=== PATIENT | female | born 1970 | race Caucasian/White ===

== ENCOUNTER → 2016-11-16 | Outpatient (CLI) | payer BC ==
--- NOTE | 2016-11-19 10:59 | MM ---
Reason for exam: screening (asymptomatic). Last mammogram was performed 1 year and 1 month ago. History: Patient has history of other cancer at age 7. Family history of breast cancer in maternal grandmother. Benign US breast aspiration single LT of the left breast, September 30, 2014. Benign excisional biopsy of the left breast, 1997. Took hormonal contraceptives for 2 years. Physical Findings: A clinical breast exam by your physician is recommended on an annual basis and results should be correlated with mammographic findings. MG Screening Mammo w CAD Bilateral CC and MLO view(s) were taken. Prior study comparison: October 05, 2015, bilateral MG diagnostic mammo w CAD MARCE. September 30, 2014, left breast MG diagnostic mammo LT wo CAD. September 24, 2014, bilateral MG diagnostic mammo w CAD MARCE. September 04, 2013, bilateral MG screening mammo w CAD. July 18, 2012, bilateral digital screening mammo w/CAD. The breast tissue is heterogeneously dense. This may lower the sensitivity of mammography. Previous mammotome biopsy in the left breast. There is chronic nodularity in the left breast. Nodular asymmetry central right breast on the MLO view appears more defined. ASSESSMENT: Incomplete: need additional imaging evaluation, BI-RAD 0 RECOMMENDATION: Special view mammogram of the right breast. If lesion persists on supplemental views, image directed ultrasound is recommended. [facility] will attempt to contact patient to return for supplemental views and ultrasound if indicated.
== END | disposition home or self-care (01) ==
LOC: RADMAMWWP 15:30
PROVIDERS: ATTEND Obstetrics & Gynecology
DX: Z12.31 Encounter for screening mammogram for malignant neoplasm of breast (principal)

== ENCOUNTER → 2016-11-21 | Outpatient (CLI) | payer BC ==
--- NOTE | 2016-11-22 07:46 | MM ---
Reason for exam: additional evaluation requested from abnormal screening. Last mammogram was performed less than 1 month ago. History: Patient has history of other cancer at age 7. Family history of breast cancer in maternal grandmother. Benign US breast aspiration single LT of the left breast, September 30, 2014. Benign excisional biopsy of the left breast, 1997. Took hormonal contraceptives for 2 years. Physical Findings: Nurse did not find any significant physical abnormalities on exam. MG Work Up Mamm w CAD RT Spot compression MLO and LM view(s) were taken of the right breast. Prior study comparison: November 16, 2016, bilateral MG screening mammo w CAD. October 05, 2015, bilateral MG diagnostic mammo w CAD MARCE. The breast tissue is heterogeneously dense. This may lower the sensitivity of mammography. The central asymmetry on the MLO view becomes less defined on spot MLO and is no longer seen on LM view. Summation shadow is suggested. Precautionary 6 month follow up recommended. These results were verbally communicated with the patient and result sheet given to the patient on 11/21/16. ASSESSMENT: Probably benign, BI-RAD 3 RECOMMENDATION: Follow-up diagnostic mammogram of the right breast in 6 months.
== END | disposition home or self-care (01) ==
LOC: RADMAMWWP 15:22
PROVIDERS: ATTEND Obstetrics & Gynecology
DX: R92.8 Other abnormal and inconclusive findings on diagnostic imaging of breast (principal); Z80.3 Family history of malignant neoplasm of breast

== ENCOUNTER → 2017-11-29 | Outpatient (CLI) | payer BC ==
--- NOTE | 2017-11-29 14:18 | MM ---
Reason for exam: additional evaluation requested from prior study. Last mammogram was performed 1 year ago. History: Patient has history of other cancer at age 7. Family history of breast cancer in paternal aunt at age 80 and breast cancer in maternal grandmother. Benign US breast aspiration single LT of the left breast, September 30, 2014. Benign excisional biopsy of the left breast, 1997. Took hormonal contraceptives for 2 years. Physical Findings: Nurse did not find any significant physical abnormalities on exam. MG 3D Diag Mammo W/Cad MARCE Bilateral CC and MLO view(s) were taken. Prior study comparison: November 21, 2016, right breast MG work up mamm w CAD RT. November 16, 2016, bilateral MG screening mammo w CAD. The breast tissue is heterogeneously dense. This may lower the sensitivity of mammography. There is a stable left upper outer quadrant mass with biopsy marker. No suspicious abnormality. These results were verbally communicated with the patient and result sheet given to the patient on 11/29/17. ASSESSMENT: Benign, BI-RAD 2 RECOMMENDATION: Routine screening mammogram of both breasts in 1 year.
== END | disposition home or self-care (01) ==
LOC: RADMAMWWP 13:23
PROVIDERS: ATTEND Obstetrics & Gynecology
DX: R92.8 Other abnormal and inconclusive findings on diagnostic imaging of breast (principal)
CPT/HCPCS: 77062; 77066

== ENCOUNTER → 2018-05-14 | Outpatient (CLI) | payer BC ==
[2018-05-14 12:45] LABS: Basophils % (A) 1 %; Eosinophils # (A) 0.1 k/uL (0-0.7); Eosinophils % (A) 2 %; HCT 37.6 % (34.0-46.0); HGB 12.7 gm/dL (11.4-16.0); Lymphocytes % (A) 21 %; MCH 31.9 pg (25.0-35.0); MCHC 33.7 g/dL (31.0-37.0); MCV 94.5 fL (80.0-100.0); Mean Platelet Volume 8.1; Monocytes # (A) 0.2 k/uL (0-1.0); Monocytes % (A) 5 %; Neutrophils # (A) 3.3 k/uL (1.3-7.7); Neutrophils % (A) 70 %; Platelet Count 254 k/uL (150-450); RBC 3.98 m/uL (3.80-5.40); WBC 4.7 k/uL (3.8-10.6)
== END | disposition home or self-care (01) ==
LOC: LABPAT 10:57
PROVIDERS: ATTEND Obstetrics & Gynecology
DX: Z01.812 Encounter for preprocedural laboratory examination (principal); N92.0 Excessive and frequent menstruation with regular cycle
CPT/HCPCS: 85025

== ENCOUNTER 2018-06-09 07:46 | Day surgery (SDC) | payer BC ==
[2018-06-03 13:31] VITALS: BMI 26.6
[~2018-06-09 07:46] MED LIST: DEXAMETHASONE SOD PHOSPHATE 10 MG/ML 1 ML VIAL IV ONE; HYDROmorphone 0.5 MG/0.5 ML SYRINGE IVP PRN; LACTATED RINGERS 1,000 ML IV SCH; LIDOCAINE 1% 20 ML VIAL (10MG/ML) FOR IV START INTRADERMA PRN; ONDANSETRON 4 MG/2 ML VIAL IVP ONE; Pre Op ABX Message 1 EACH MISC MISCELLANE ONE; SCOPOLAMINE 1.5MG/72HR PATCH TRANSDERM ONE
[2018-06-09] MEDS ORDERED: fentaNYL (PF) 50 MCG/ML 2 ML AMP ONE (09:02)
[2018-06-09] MEDS ORDERED: PROPOFOL 10 MG/ML 20 ML VIAL IV ONE (09:02)
[2018-06-09] MEDS ORDERED: LIDOCAINE 1% INJ 10MG/ML (20 ML MDV) ONE (09:02)
[2018-06-09] MEDS ORDERED: MIDAZOLAM 2 MG/2 ML VIAL ONE (09:02)
[2018-06-09] MEDS ORDERED: KETOROLAC 30 MG/ML 1 ML VIAL IVP PRN (09:03)
[2018-06-09] MEDS ORDERED: METOCLOPRAMIDE 5 MG/ML 2 ML VIAL IVP PRN (09:03)
[2018-06-09] MEDS ORDERED: IBUPROFEN 600 MG TAB PO PRN (09:03)
[2018-06-09] MEDS ORDERED: ONDANSETRON 4 MG/2 ML VIAL IVP PRN (09:03)
[2018-06-09] MEDS ORDERED: Acetaminophen-Codeine 300-30mg TAB PO PRN ×2 (09:03)
[2018-06-09] MEDS ORDERED: SIMETHICONE 80 MG CHEWABLE PO PRN (09:03)
[2018-06-09] MEDS ORDERED: diphenhydrAMINE 50 MG/ML 1 ML VIAL IVP PRN (09:03)
[2018-06-09] MEDS ORDERED: LACTATED RINGERS 1,000 ML IV SCH (09:15)
--- NOTE | 2018-06-09 09:33 | P.OP ---
Date of Procedure: 06/09/18 Preoperative Diagnosis: #1. Dysfunctional uterine bleeding #2. Menorrhagia Postoperative Diagnosis: Same Procedure(s) Performed: #1. Diagnostic hysteroscopy #2. NovaSure endometrial ablation Anesthesia: other (Gen. by face mask) Surgeon: Pérez Bernstein Estimated Blood Loss (ml): 2 IV fluids (ml): 400 Urine output (ml): 20 Pathology: none sent Condition: stable Disposition: PACU Operative Findings: Preoperative pelvic examination demonstrated a 5 week slightly retroverted mobile normal shaped uterus with normal adnexa bilaterally. Intraoperatively, the uterus sounded to 9.5 cm with a cervical length of 3.5 cm. Using the hysteroscope, the bilateral tubal ostia were seen and there was no apparent pathology though there was some shaggy endometrium throughout. The settings for the NovaSure tool where a length of 6.0 cm, a width of 4.4 cm, for a power of 145 W. After a total run time of 63 seconds, the base unit read "procedure complete." The resulting procedure appeared to be excellent. The patient is a candidate for vaginal hysterectomy should it become necessary. Description of Procedure: The patient was prepped and draped in usual fashion after general anesthesia was administered by the anesthesiologist. A weighted speculum was placed and the bladder drained of approximately 20 mL of clear elvia urine. The anterior lip of the cervix was grasped with a single-tooth tenaculum and uterus sounded to 9.5 cm as noted above with a cervical length of approximate 3.5 cm. Serial dilation was carried out to admit the diagnostic hysteroscope which was placed to the fundus and hysteroscopy carried out. The findings are as noted above with no obvious pathology and the bilateral tubal ostia were seen. The scope was set aside and the NovaSure tool placed to the fundus and opened and seated well. The settings are as noted above with a length of 6.0 cm, width of 4.4 cm, for a power 145 W. The cavity check was attempted and passed without difficulty. The tool was enabled and the run was started. After a run time of 63 seconds, the base unit read "procedure complete." The scope was closed, removed, and discarded. The diagnostic scope was replaced with an excellent res ult as noted above. All instrumentation was then removed and the patient allowed to waken. Estimated blood loss for the case was 2 mL or less. There are no complications. All sponge, instrument, and needle counts were correct. The patient tolerated the procedure well and proceeded to the recovery room in stable condition.
[2018-06-09 09:47] VITALS: TEMP 97.5
[2018-06-09 10:15] VITALS: RESP 16
[2018-06-09 10:33] VITALS: BP 114/79; PULSE 65
== END 2018-06-09 10:59 | disposition home or self-care (01) ==
LOC: OR 07:46
PROVIDERS: ATTEND Obstetrics & Gynecology
DX: N93.8 Other specified abnormal uterine and vaginal bleeding (principal); N92.0 Excessive and frequent menstruation with regular cycle; I69.311 Memory deficit following cerebral infarction; R56.9 Unspecified convulsions; Z86.011 Personal history of benign neoplasm of the brain; Z80.3 Family history of malignant neoplasm of breast; Z80.42 Family history of malignant neoplasm of prostate; Z80.6 Family history of leukemia; Z79.899 Other long term (current) drug therapy; Z91.040 Latex allergy status; Z91.048 Other nonmedicinal substance allergy status
CPT/HCPCS: 81025; 58563; J2250; J1100; J2405; J2001; J3010; J2704

== ENCOUNTER → 2018-10-21 | Outpatient (CLI) | payer BC ==
[2018-10-21 15:59] LABS: Basophils # (A) 0.1 k/uL (0-0.2); Basophils % (A) 1 %; Eosinophils # (A) 0.1 k/uL (0-0.7); Eosinophils % (A) 1 %; HCT 38.5 % (34.0-46.0); HGB 13.2 gm/dL (11.4-16.0); Lymphocytes # (A) 0.9 k/uL (1.0-4.8); Lymphocytes % (A) 13 %; MCH 32.6 pg (25.0-35.0); MCHC 34.2 g/dL (31.0-37.0); MCV 95.3 fL (80.0-100.0); Mean Platelet Volume 7.3; Monocytes # (A) 0.3 k/uL (0-1.0); Monocytes % (A) 4 %; Neutrophils # (A) 5.7 k/uL (1.3-7.7); Neutrophils % (A) 80 %; Platelet Count 280 k/uL (150-450); RBC 4.04 m/uL (3.80-5.40); RDW 12.9 % (11.5-15.5); WBC 7.1 k/uL (3.8-10.6)
[2018-10-21 16:14] LABS: Amorphous Sediment,Urine Occasional /hpf; Appearance,Urine Clear (Clear); Bacteria,Urine Occasional /hpf; Bilirubin,Urine Negative (Negative); Blood,Urine Moderate (Negative); Color,Urine Yellow; Glucose,Urine (UA) Negative (Negative); Ketones,Urine Negative (Negative); Leukocyte Esterase,Urine Small (Negative); Mucus,Urine Rare /hpf; Nitrite,Urine Negative (Negative); Protein,Urine Negative (Negative); RBC,Urine 4 /hpf (0-5); Squamous Epithelial Cell,Urine 4 /hpf (0-4); Urobilinogen,Urine <2.0 mg/dL (<2.0); WBC,Urine 7 /hpf (0-5)
[2018-10-22 00:45] LABS: African American GFR (CKD) 88.9 (60.0-200.0); Albumin 4.7 g/dL (3.80-4.90); Albumin/Globulin Ratio 2.61 (1.60-3.17); Anion Gap 8.7 mmol/L (4.00-12.00); BUN/Creat Ratio 14.44 Ratio (12.00-20.00); Calcium 9.4 mg/dL (8.7-10.3); Carbon Dioxide 26.3 mmol/L (21.6-31.8); Globulin 1.8 g/dL (1.6-3.3); Potassium 4.3 mmol/L (3.5-5.5); Total Bilirubin 0.4 mg/dL (0.2-1.2); Total Protein 6.5 g/dL (6.2-8.2)
[2018-10-22 08:33] LABS: Levetiracetam (Keppra) 28.5 ug/mL (3.0-60.0)
== END | disposition home or self-care (01) ==
LOC: LABWHC1 15:32
PROVIDERS: ATTEND Psychiatry & Neurology Neurology
DX: R56.9 Unspecified convulsions (principal); T50.905A Adverse effect of unspecified drugs, medicaments and biological substances, initial encounter
CPT/HCPCS: 36415; 80053; 80177; 80339; 81001; 85025; 87086

== ENCOUNTER → 2018-12-24 | Outpatient (CLI) | payer BC ==
--- NOTE | 2018-12-26 09:58 | MM ---
Reason for exam: screening (asymptomatic). Last mammogram was performed 1 year and 1 month ago. History: Patient has history of other cancer at age 7. Family history of breast cancer in paternal aunt at age 80 and breast cancer in maternal grandmother. Benign US breast aspiration single LT of the left breast, September 30, 2014. Benign excisional biopsy of the left breast, 1997. Took hormonal contraceptives for 2 years. Physical Findings: A clinical breast exam by your physician is recommended on an annual basis and results should be correlated with mammographic findings. MG Screening Mammo w CAD Bilateral CC, MLO, and XCCL view(s) were taken. Prior study comparison: November 29, 2017, bilateral MG 3d diag mammo w/cad MARCE. November 21, 2016, right breast MG work up mamm w CAD RT. The breast tissue is heterogeneously dense. This may lower the sensitivity of mammography. Previous mammotome biopsy in the left breast. Global asymmetry left upper outer quadrant is stable. No significant changes when compared with prior studies. ASSESSMENT: Negative, BI-RAD 1 RECOMMENDATION: Routine screening mammogram of both breasts in 1 year.
== END | disposition home or self-care (01) ==
LOC: RADMAMWWP 15:37
PROVIDERS: ATTEND Obstetrics & Gynecology
DX: Z12.31 Encounter for screening mammogram for malignant neoplasm of breast (principal)
CPT/HCPCS: 77067

== ENCOUNTER 2019-02-02 13:09 | Observation (INO) | payer BC ==
[2019-02-02] MEDS ORDERED: SODIUM CHLORIDE 0.9% 1,000 ML IV ONE (13:55)
--- NOTE | 2019-02-02 14:25 | CT ---
EXAMINATION TYPE: CT brain wo con DATE OF EXAM: 02/02/2019 COMPARISON: 02/10/2014 HISTORY: Altered mental status CT DLP: 1084.[address] of the brain was performed. The ventricles, basal cisterns and sulci overlying the cerebral convexities demonstrate mild enlargem ent. Multiple large areas of remote insult noted both cerebral hemispheres greatest within the left f rontal lobe and posterior MCA territories bilaterally. There is no evidence for intracranial hemorrhage or sulcal effacement. There is decreased attenuation about the periventricular white matter and deep white matter of both c erebral hemispheres, compatible with chronic small vessel ischemia. Differential diagnosis does inclu de demyelination. No mass effects are seen.No midline shift. Osseous calvarium is intact. Stable postoperative changes posterior fossa. If symptoms persist consider MRI. IMPRESSION: 1. Age related atrophic and chronic small vessel ischemic change without acute intracranial process s een at this time.
--- NOTE | 2019-02-02 14:31 | ED ---
General Adult HPI - General Chief complaint: Altered Mental Status Stated complaint: Syncope, Seizures Time Seen by Provider: 02/02/19 13:35 Source: patient, family, RN notes reviewed, old records reviewed Mode of arrival: wheelchair Limitations: no limitations - History of Present Illness Initial comments: 48-year-old female presenting for evaluation of acute confusion. Patient has previous history of multiple neurosurgeries, brain tumor as a child and acoustic neuroma as a dull. This was complicated by an episode of cerebritis and multiple strokes. She also has seizure disorder and chronic headaches. She follows with neurology on a regular basis. According to her she's had increased fatigue, mild confusion for the past one week. No worsening of focal numbness or weakness. She had an episode this afternoon where she was confused, however she was in her own home. This resolved prior to arrival. No nausea or vomiting, no diarrhea. No history of fever. She has had a mild cough. No URI symptoms. No recent changes in medications. - Related Data Home Medications Medication Instructions Recorded Confirmed Baclofen 10 mg PO TID 02/10/14 06/09/18 Cholecalciferol [Vitamin D3] 1,000 unit PO DAILY 02/10/14 06/09/18 Multivitamins, Thera [Multivitamin] 1 tab PO DAILY 02/10/14 06/09/18 DULoxetine HCL [Cymbalta] 60 mg PO QAM 06/03/18 06/09/18 Iron 1 tab PO DAILY 06/03/18 06/09/18 Stool Softener 1 tab PO DAILY 06/03/18 06/09/18 Lacosamide [Vimpat] 200 mg PO TID 06/09/18 06/09/18 Previous Rx's Medication Instructions Recorded levETIRAcetam [Keppra] 500 mg PO Q8H #60 tab 02/10/14 Allergies Allergy/AdvReac Type Severity Reaction Status Date / Time latex Allergy Rash/Hives Verified 02/02/19 13:33 petrolatum, yellow Allergy Rash/Hives Verified 02/02/19 13:33 Review of Systems ROS Statement: Those systems with pertinent positive or pertinent negative responses have been documented in the HPI. ROS Other: All systems not noted in ROS Statement are negative. Past Medical History Past Medical History: CVA/TIA, Seizure Disorder Additional Past Medical History / Comment(s): at 7years old had cancerous brain tumor with removal and radiation.brain tumor 2008 with surgery, menigitis from surgery. cva x5 2007. right foot tendon surgery 2011. right knee surgery 1998 and left elbow surgery 2000. History of Any Multi-Drug Resistant Organisms: None Reported Past Surgical History: Section, Orthopedic Surgery Additional Past Surgical History / Comment(s): brain surgery/ arm/ knee/feet Past Psychological History: No Psychological Hx Reported Smoking Status: Never smoker Past Alcohol Use History: Rare Past Drug Use History: None Reported General Exam Limitations: no limitations General appearance: alert, in no apparent distress Head exam: Present: atraumatic, normocephalic Eye exam: Present: normal appearance, PERRL, EOMI ENT exam: Present: normal exam Neck exam: Present: normal inspection, full ROM. Absent: tenderness, meningismus Respiratory exam: Present: normal lung sounds bilaterally. Absent: respiratory distress, wheezes Cardiovascular Exam: Present: regular rate, normal rhythm GI/Abdominal exam: Present: soft. Absent: distended, tenderness Extremities exam: Present: normal inspection, normal capillary refill. Absent: pedal edema Neurological exam: Present: alert, motor sensory deficit (Ataxia the right upper extremity). Absent: oriented X3 Psychiatric exam: Present: normal affect, normal mood Skin exam: Present: warm, dry, intact. Absent: cyanosis, diaphoretic Course Vital Signs 02/02/19 13:28 Temperature 98.0 F Pulse Rate 72 Respiratory 18 Rate Blood Pressure 124/81 O2 Sat by Pulse 100 Oximetry Medical Decision Making - Medical Decision Making 48-year-old female presenting with 1 week history of slurred speech and mild confusion than an episode today of more profound confusion prompting an ER evaluation. Patient is Okay past medical history. She has stable vitals initial evaluation. She has a left facial droop and right upper extremity ataxia. According to her these are baseline deficits. Head CT is performed, negative for intracranial hemorrhage, there is significant e ncephalomalacia within the left hemisphere. She has normal CBC, normal CMP, normal urinalysis. No other explanation for altered mental status, confusion or dysarthria. Given her previous history she will be admitted for TIA, CVA workup. Case is discussed with admitting physician Dr. Tamez - Lab Data Result diagrams: 02/02/19 15:15 02/02/19 15:15 Lab Results 02/02/19 02/02/19 02/02/19 Range/Units 15:15 15:15 15:15 WBC 4.6 (3.8-10.6) k/uL RBC 4.08 (3.80-5.40) m/uL Hgb 12.9 (11.4-16.0) gm/dL Hct 38.5 (34.0-46.0) % MCV 94.3 (80.0-100.0) fL MCH 31.7 (25.0-35.0) pg MCHC 33.6 (31.0-37.0) g/dL RDW 12.1 (11.5-15.5) % Plt Count 196 (150-450) k/uL Neutrophils % 67 % Lymphocytes % 23 % Monocytes % 6 % Eosinophils % 3 % Basophils % 1 % Neutrophils # 3.1 (1.3-7.7) k/uL Lymphocytes # 1.0 (1.0-4.8) k/uL Monocytes # 0.3 (0-1.0) k/uL Eosinophils # 0.1 (0-0.7) k/uL Basophils # 0.1 (0-0.2) k/uL PT 10.2 (9.0-12.0) sec INR 0.9 (<1.2) APTT 25.8 (22.0-30.0) sec Sodium 140 (137-145) mmol/L Potassium 4.9 (3.5-5.1) mmol/L Chloride 108 H (98-107) mmol/L Carbon Dioxide 26 (22-30) mmol/L Anion Gap 6 mmol/L BUN 10 (7-17) mg/dL Creatinine 0.65 (0.52-1.04) mg/dL Est GFR (CKD-EPI)AfAm >90 (>60 ml/min/1.73 sqM) Est GFR (CKD-EPI)NonAf >90 (>60 ml/min/1.73 sqM) Glucose 89 (74-99) mg/dL Calcium 9.4 (8.4-10.2) mg/dL Total Bilirubin 0.6 (0.2-1.3) mg/dL AST 26 (14-36) U/L ALT 14 (4-34) U/L Alkaline Phosphatase 36 L (38-126) U/L Ammonia (<30) umol/L Total Protein 6.9 (6.3-8.2) g/dL Albumin 4.3 (3.5-5.0) g/dL Urine Color Urine Appearance (Clear) Urine pH (5.0-8.0) Ur Specific [place] (1.001-1.035) Urine Protein (Negative) Urine Glucose (UA) (Negative) Urine Ketones (Negative) Urine Blood (Negative) Urine Nitrite (Negative) Urine Bilirubin (Negative) Urine Urobilinogen (<2.0) mg/dL Ur Leukocyte Esterase (Negative) Urine RBC (0-5) /hpf Urine WBC (0-5) /hpf Ur Squamous Epith Cells (0-4) /hpf 02/02/19 02/02/19 Range/Units 15:15 15:45 WBC (3.8-10.6) k/uL RBC (3.80-5.40) m/uL Hgb (11.4-16.0) gm/dL Hct (34.0-46.0) % MCV (80.0-100.0) fL MCH (25.0-35.0) pg MCHC (31.0-37.0) g/dL RDW (11.5-15.5) % Plt Count (150-450) k/uL Neutrophils % % Lymphocytes % % Monocytes % % Eosinophils % % Basophils % % Neutrophils # (1.3-7.7) k/uL Lymphocytes # (1.0-4.8) k/uL Monocytes # (0-1.0) k/uL Eosinophils # (0-0.7) k/uL Basophils # (0-0.2) k/uL PT (9.0-12.0) sec INR (<1.2) APTT (22.0-30.0) sec Sodium (137-145) mmol/L Potassium (3.5-5.1) mmol/L Chloride (98-107) mmol/L Carbon Dioxide (22-30) mmol/L Anion Gap mmol/L BUN (7-17) mg/dL Creatinine (0.52-1.04) mg/dL Est GFR (CKD-EPI)AfAm (>60 ml/min/1.73 sqM) Est GFR (CKD-EPI)NonAf (>60 ml/min/1.73 sqM) Glucose (74-99) mg/dL Calcium (8.4-10.2) mg/dL Total Bilirubin (0.2-1.3) mg/dL AST (14-36) U/L ALT (4-34) U/L Alkaline Phosphatase (38-126) U/L Ammonia <9 (<30) umol/L Total Protein (6.3-8.2) g/dL Albumin (3.5-5.0) g/dL Urine Color Yellow Urine Appearance Clear (Clear) Urine pH 8.0 (5.0-8.0) Ur Specific [place] 1.004 (1.001-1.035) Urine Protein Negative (Negative) Urine Glucose (UA) Negative (Negative) Urine Ketones Negative (Negative) Urine Blood Moderate H (Negative) Urine Nitrite Negative (Negative) Urine Bilirubin Negative (Negative) Urine Urobilinogen <2.0 (<2.0) mg/dL Ur Leukocyte Esterase Negative (Negative) Urine RBC 1 (0-5) /hpf Urine WBC 1 (0-5) /hpf Ur Squamous Epith Cells 4 (0-4) /hpf Disposition Clinical Impression: TIA (transient ischemic attack), Altered mental status Disposition: ADMITTED IP TO THIS [facility] Condition: Stable Is patient prescribed a controlled substance at d/c from ED?: No Referrals: Unruly Radford MD [Primary Care Provider] - 1-2 days Decision to Admit Reason: Admit from EC Decision Date: 02/02/19 Decision Time: 16:38
--- NOTE | 2019-02-02 14:31 | XR ---
EXAMINATION TYPE: XR chest 2V DATE OF EXAM: 02/02/2019 COMPARISON: None HISTORY: 48-year-old female with altered mental status, confusion TECHNIQUE: PA and lateral views FINDINGS: The cardiomediastinal silhouette, aorta, and pulmonary vasculature are within normal limits. Lungs an d pleural spaces are clear. IMPRESSION: No acute cardiopulmonary process.
[2019-02-02 15:47] LABS: Basophils # (A) 0.1 k/uL (0-0.2); Basophils % (A) 1 %; Eosinophils # (A) 0.1 k/uL (0-0.7); Eosinophils % (A) 3 %; HCT 38.5 % (34.0-46.0); HGB 12.9 gm/dL (11.4-16.0); Lymphocytes % (A) 23 %; MCH 31.7 pg (25.0-35.0); MCHC 33.6 g/dL (31.0-37.0); MCV 94.3 fL (80.0-100.0); Mean Platelet Volume 8.7; Monocytes # (A) 0.3 k/uL (0-1.0); Monocytes % (A) 6 %; Neutrophils # (A) 3.1 k/uL (1.3-7.7); Neutrophils % (A) 67 %; Platelet Count 196 k/uL (150-450); RBC 4.08 m/uL (3.80-5.40); RDW 12.1 % (11.5-15.5); WBC 4.6 k/uL (3.8-10.6)
[2019-02-02 15:52] LABS: INR 0.9 (<1.2); Partial Thromboplastin Time 25.8 sec (22.0-30.0); Prothrombin Time 10.2 sec (9.0-12.0)
[2019-02-02 15:58] LABS: ALT 14 U/L (4-34); AST 26 U/L (14-36); African American GFR (CKD) >90 (>60 ml/min/1.73 sqM); Albumin 4.3 g/dL (3.5-5.0); Alkaline Phosphatase 36 U/L (38-126); Anion Gap 6 mmol/L; Blood Urea Nitrogen 10 mg/dL (7-17); Calcium 9.4 mg/dL (8.4-10.2); Carbon Dioxide 26 mmol/L (22-30); Chloride 108 mmol/L (98-107); Glucose 89 mg/dL (74-99); Non-African American GFR(CKD) >90 (>60 ml/min/1.73 sqM); Potassium 4.9 mmol/L (3.5-5.1); Sodium 140 mmol/L (137-145); Total Bilirubin 0.6 mg/dL (0.2-1.3); Total Protein 6.9 g/dL (6.3-8.2)
[2019-02-02] MEDS ORDERED: HYDROmorphone 1 MG/ML 1 ML SYRINGE IVP STA (16:00)
[2019-02-02 16:17] LABS: Appearance,Urine Clear (Clear); Bilirubin,Urine Negative (Negative); Blood,Urine Moderate (Negative); Color,Urine Yellow; Glucose,Urine (UA) Negative (Negative); Ketones,Urine Negative (Negative); Leukocyte Esterase,Urine Negative (Negative); Nitrite,Urine Negative (Negative); Protein,Urine Negative (Negative); RBC,Urine 1 /hpf (0-5); Specific Gravity,Urine 1.004 (1.001-1.035); Squamous Epithelial Cell,Urine 4 /hpf (0-4); Urobilinogen,Urine <2.0 mg/dL (<2.0); WBC,Urine 1 /hpf (0-5)
[2019-02-02] MEDS ORDERED: ASPIRIN 325 MG TAB PO STA (16:21)
[2019-02-02] MEDS ORDERED: ACETAMINOPHEN TAB 325 MG TAB PO PRN (16:32)
[2019-02-02] MEDS ORDERED: HYDROmorphone 0.5 MG/0.5 ML SYRINGE IVP PRN (16:52)
[2019-02-02] MEDS ORDERED: NALOXONE 0.4 MG/ML 1 ML VIAL IV PRN (18:25)
[2019-02-02] MEDS: SODIUM CHLORIDE 0.9% 1,000 ML IV SCH (18:37)
--- NOTE | 2019-02-02 18:41 | P.HPIM ---
History of Present Illness H&P Date: 02/02/19 Chief Complaint: Confusion 48-year-old female with extensive PMH of childhood cerebellar brain tumor, acoustic neuroma, history of meningitis and cerebritis, multiple CVAs, chronic headache, seizure disorder with last seizure in February presents the ED for forgetfulness and worsening confusion. Her is at bedside and is providing supplemental history. Patient states that she woke up this morning not feeling well. Patient states that she was more forgetful than usual, had to be reminded by her that she took her medications this morning. Her had noticed that patient was increasingly confused, "feeling off", difficult time talking and finding words. This prompted him to bring her to the ED. Patient reports left-sided facial droop along with right-sided residual weakness along with slurred speech that has been present for many years due to her above history. She sees Dr. Mayers neurology. Patient currently reports a frontal headache along with right lower extremity swelling and muscle cramping. She denies any nausea or vomiting, fever or chills, cough, chest pain, shortness of breath, palpitations, changes in urination or bowel habits. No changes in appetite or weight. In the ED, her vital signs were stable. CBC was unremarka ble. Coagulation panel was negative. CMP showed chloride of 108 and alkaline phosphatase of 36. CT brain showed age-related atrophy, and chronic small vessel ischemic changes without acute intracranial process. Patient is admitted for increased confusion, CVA workup with neurology on consult. Review of Systems Pertinent positives and negatives as discussed in HPI, a complete review of systems was performed and all other systems are negative. 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 cva x5 2007. right foot tendon surgery 2011. right knee surgery 1998 and left elbow surgery 2000. History of Any Multi-Drug Resistant Organisms: None Reported Past Surgical History: Section, Orthopedic Surgery Additional Past Surgical History / Comment(s): brain surgery/ arm/ knee/feet Past Psychological History: No Psychological Hx Reported Smoking Status: Never smoker Past Alcohol Use History: Rare Past Drug Use History: None Reported Medications and Allergies Home Medications Medication Instructions Recorded Confirmed Type Baclofen 10 mg PO TID 02/10/14 02/02/19 History DULoxetine HCL [Cymbalta] 60 mg PO QAM 06/03/18 02/02/19 History Docusate [Colace] 100 mg PO W/LUNCH 02/02/19 02/02/19 History Ferrous Sulfate [Feosol] 325 mg PO W/LUNCH 02/02/19 02/02/19 History LORazepam [Ativan] 1 mg PO HS 02/02/19 02/02/19 History Lacosamide [Vimpat] 300 mg PO BID 02/02/19 02/02/19 History levETIRAcetam [Keppra] 1,500 mg PO BID 02/02/19 02/02/19 History Allergies Allergy/AdvReac Type Severity Reaction Status Date / Time latex Allergy Rash/Hives Verified 02/02/19 16:42 petrolatum, yellow Allergy Rash/Hives Verified 02/02/19 16:42 Physical Exam Vitals: Vital Signs Temp Pulse Resp BP Pulse Ox 02/02/19 13:28 98.0 F 72 18 124/81 100 Intake and Output 02/02/19 02/02/19 02/02/19 06:59 14:59 22:59 Other: Weight 61.235 kg General: [non toxic], [no distress], [appears at stated age] Derm: [warm], [dry] Head: [atraumatic], [normocephalic], [symmetric] Eyes: [EOMI], [no lid lag], [anicteric sclera] Mouth: [no lip lesion], [mucus membranes moist] Cardiovascular: [S1S2 reg], [no murmur], [positive DP pulse bilateral], Lungs: [CTA bilateral], [no rhonchi, no rales] , [no accessory muscle use] Abdominal: [soft], [ nontender to palpation], [no guarding], [no appreciable organomegaly] Ext: [no gross muscle atrophy], [minimal swelling in the right lower extremity], [medial deviation of the feet bilaterally] Neuro: [ CN II-XI grossly intact except left-sided facial droop and inability to raise forehead on the left side], [strength is 4 out of 5 in the right upper extremity and 5 out of 5 throughout with sensation intact to touch] Psych: [Alert], [oriented], [appropriate affect] Results CBC & Chem 7: 02/02/19 15:15 02/02/19 15:15 Labs: Abnormal Lab Results - Last 24 Hours (Table) 02/02/19 02/02/19 Range/Units 15:15 15:45 Chloride 108 H (98-107) mmol/L Alkaline Phosphatase 36 L (38-126) U/L Urine Blood Moderate H (Negative) Assessment and Plan Assessment: Acute encephalopathy with history of cerebellar tumor, acoustic neuroma post surgery complicated with meningitis and multiple CVA Seizure disorder Right lower extremity swelling and pain CT brain is negative for acute changes. Ammonia is negative. Urinalysis negative for leukocyte esterase or nitrites. Plans: Will initiate CVA workup. Follow MRI of the brain. Follow MRA head and neck. Follow echocardiogram. Follow A1c and lipid panel. Advance to neurochecks. Telemetry monitoring. Swallow screen. Follow speech therapy, PT and OT. Current complaint does not seem to be related to seizures. Plans: Resume Keppra. Resume Lacosamide. Seizure precautions. Follow Keppra levels. Follow EEG. Plans: Follow duplex right lower extremity. Pain control with baclofen, [place], Dilaudid as needed. DVT prophylaxis: [Heparin] Discussed with: [Patient and ] Anticipated discharge: [1-2 days] Anticipated discharge place: [Home] A total of [35] minutes was spent on the care of this complex patient more than 50% of the time was spent in counseling and care coordination. Patient names her Shawn decision maker if she can't make decisions for herself. Patient would like to be no code. Her is at bedside to confirm her thoughts.
[2019-02-02 19:18] VITALS: RESP 16
[2019-02-02] MEDS: HYDROmorphone 0.5 MG/0.5 ML SYRINGE IVP PRN ×2 (19:46→23:56)
[2019-02-02] MEDS: HEPARIN SODIUM,PORCINE 5,000 UNIT/ML 1 ML VIAL SQ SCH (20:05)
[2019-02-02] MEDS: LACOSAMIDE 150 MG TABLET PO SCH (20:05)
[2019-02-02] MEDS: BACLOFEN 10 MG TAB PO SCH (20:05)
[2019-02-02] MEDS ORDERED: LORazepam 1 MG TAB PO SCH (21:00)
--- NOTE | 2019-02-03 00:29 | US ---
EXAMINATION TYPE: US venous doppler duplex LE RT DATE OF EXAM: 02/02/2019 8:48 PM COMPARISON: NONE CLINICAL HISTORY: swelling. Swelling right leg x 3 weeks. Pain. No hx of DVT. Patient does not take b lood thinners. SIDE PERFORMED: Right TECHNIQUE: The lower extremity deep venous system is examined utilizing real time linear array sonog monik with graded compression, doppler sonography and color-flow sonography. VESSELS IMAGED: External Iliac Vein (EIV) Common Femoral Vein Deep Femoral Vein Greater Saphenous Vein * Femoral Vein Popliteal Vein Small Saphenous Vein * Proximal Calf Veins (* superficial vessels) Right Leg: No evidence of DVT in veins imaged at this time from prox calf veins to EIV. IMPRESSION: Normal right leg duplex venous sonogram.
[2019-02-03] MEDS: HYDROmorphone 0.5 MG/0.5 ML SYRINGE IVP PRN (02:42)
[2019-02-03] MEDS: HYDROcodone/APAP 5-325MG 1 EACH TAB PO PRN ×2 (06:11→13:01)
[2019-02-03] MEDS: SODIUM CHLORIDE 0.9% 1,000 ML IV SCH (06:11)
[2019-02-03 07:14] LABS: Cholesterol 211 mg/dL (<200); HDL Cholesterol 48 mg/dL (40-60); LDL Cholesterol,Calculated 132 mg/dL (0-99); Triglycerides 155 mg/dL (<150)
[2019-02-03] MEDS: HEPARIN SODIUM,PORCINE 5,000 UNIT/ML 1 ML VIAL SQ SCH (08:37)
[2019-02-03] MEDS: LACOSAMIDE 150 MG TABLET PO SCH (08:37)
[2019-02-03] MEDS: BACLOFEN 10 MG TAB PO SCH ×2 (08:37→16:02)
[2019-02-03] MEDS ORDERED: INFLUENZA VACCINE (6 MOS+) 60 MCG/0.5 ML SYRINGE IM ONE (08:40)
[2019-02-03] MEDS ORDERED: DULoxetine HCL 60 MG CAPSULE.DR PO SCH (09:00)
--- NOTE | 2019-02-03 10:56 | MR ---
EXAMINATION [facility] DATE OF EXAM: 02/03/2019 COMPARISON: MRI brain October 27, 2014. CT brain from yesterday. HISTORY: History of craniotomy for acoustic neuroma and seizures with acute onset altered mental stat us one day earlier, acute CVA TECHNIQUE: Multiplanar, multisequence images of the brain and brainstem is performed without and with IV contras t, utilizing 7 mL intravenous Gadavist . Imaging of the neck AND coronary vessels was also performed. 2-D and 3-D reconstructed images are created on a independent workstation and reviewed. FINDINGS: BRAIN: Diffusion weighted images demonstrate no evidence of a recent infarct or other diffusion abnormality. There is persistent ventricular and sulcal prominence. There is persistent areas of multifocal encep halomalacia involving bilateral occipital lobes and high left frontal region along with bilateral par ietal aspects greater on the left the posterior watershed region and finally the right cerebellar hem isphere greater than the left side. No significant change from prior. Midline structures demonstrate normal morphology. The craniocervical junction appears within normal limits. Post contrast images demonstrate no abnormal enhancement. The dural venous sinuses appear pa tent. The visualized sinuses are clear and the globes are intact. 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 IMPRESSION: No evidence of a recent infarct. Multifocal areas of old infarct and encephalomalacia are all redemonstrated without significant change from 2015 MRI. NECK MRA: Normal 3 vessel origin from aortic arch. No significant focal stenosis in visualized portio n of common or internal carotid arteries bilaterally including at level of the carotid bulbs. Subopti mal evaluation distal internal carotid arteries due to tortuous course and nonperformance of dedicate d MRA head imaging. External carotid arteries show no significant stenosis. Codominant vertebrobasilar system patent to basilar junction. Impression: No significant focal stenosis in visualized portion of common or internal carotid arterie s bilaterally.
--- NOTE | 2019-02-03 11:32 | ECHOF ---
Referral Reason:Thrombus MEASUREMENTS -------- HEIGHT: 157.5 cm WEIGHT: 69.9 kg BP: 122/59 RVIDd: 2.9 cm (< 3.3) IVSd: 0.8 cm (0.6 - 1.1) LVIDd: 4.2 cm (3.9 - 5.3) LVPWd: 1.2 cm (0.6 - 1.1) IVSs: 1.0 cm LVIDs: 3.3 cm LVPWs: 1.0 cm LA Diam: 2.5 cm (2.7 - 3.8) Ao Diam: 2.9 cm (2.0 - 3.7) AV Cusp: 2.1 cm (1.5 - 2.6) LA Diam: 2.8 cm (2.7 - 3.8) MV EXCURSION: 18.525 mm (> 18.000) MV EF SLOPE: 117 mm/s (70 - 150) EPSS: 0.2 cm MV E Matt: 0.79 m/s MV DecT: 186 ms MV A Matt: 0.47 m/s MV E/A Ratio: 1.69 RAP: 5.00 mmHg RVSP: 17.61 mmHg FINDINGS -------- Sinus rhythm. This was a technically adequate study. LV size, wall thickness and systolic function are normal, with an EF greater than 55%. The left dennis tricular size is normal. The diastolic filling pattern is normal for the age of the patient 9.79. The right ventricle is normal in size. The left atrial size is normal. The right atrial size is normal. The aortic valve is trileaflet, and appears structurally normal. No aortic stenosis or regurgitation. The mitral valve leaflets are mildly thickened. Mild mitral regurgitation is present. Mild tricuspid regurgitation present. Right ventricular systolic pressure is normal at < 35 mmHg. There is no evidence of pulmonary hypertension. There is no pulmonic regurgitation present. The aortic root size is normal. There is no pericardial effusion. CONCLUSIONS -------- 1. Sinus rhythm. 2. This was a technically adequate study. 3. LV size, wall thickness and systolic function are normal, with an EF greater than 55%. 4. The left ventricular size is normal. 5. The diastolic filling pattern is normal for the age of the patient 9.79 6. The left atrial size is normal. 7. The aortic valve is trileaflet, and appears structurally normal. No aortic stenosis or regurgitati on. 8. Mild mitral regurgitation is present. 9. Mild tricuspid regurgitation present. 10. Right ventricular systolic pressure is normal at < 35 mmHg. 11. There is no pulmonic regurgitation present. 12. The aortic root size is normal. 13. There is no pericardial effusion. RISK ASSESSMENT ANALYST: Madeleine Jackson RDCS
[2019-02-03 12:30] VITALS: TEMP 98
[2019-02-03] MEDS ORDERED: DOCUSATE 100 MG CAP PO SCH (12:30)
[2019-02-03] MEDS ORDERED: FERROUS SULFATE 325 MG TAB PO SCH (12:30)
[2019-02-03 13:43] LABS: Hemoglobin A1C 5.3 % (4.0-6.0)
--- NOTE | 2019-02-03 13:44 | P.DS ---
Providers Date of admission: 02/02/19 16:32 Expected date of discharge: 02/03/19 Attending physician: Mars Lara MD Consults: 02/02/19 16:33 Consult Physician Routine Consulting Provider: Amber Alatorre Consult Reason/Comments: TIA/CVA Do you want consulting provider notified?: Yes Primary care physician: [facility] Course: 48-year-old female with extensive PMH of childhood cerebellar brain tumor, acoustic neuroma, history of meningitis and cerebritis, multiple CVAs, chronic headache, seizure disorder with last seizure in February presents the ED for for getfulness and worsening confusion. Her is at bedside and is providing supplemental history. Patient states that she woke up this morning not feeling well. Patient states that she was more forgetful than usual, had to be reminded by her that she took her medications this morning. Her had noticed that patient was increasingly confused, "feeling off", difficult time talking and finding words. This prompted him to bring her to the ED. Patient reports left-sided facial droop along with right-sided residual weakness along with slurred speech that has been present for many years due to her above history. She sees Dr. Mayers neurology. Patient currently reports a frontal headache along with right lower extremity swelling and muscle cramping. She denies any nausea or vomiting, fever or chills, cough, chest pain, shortness of breath, palpitations, changes in urination or bowel habits. No changes in appetite or weight. In the ED, her vital signs were stable. CBC was unremarkable. Coagulation panel was negative. CMP showed chloride of 108 and alkaline phosphatase of 36. CT brain showed age-related atrophy, and chronic small vessel ischemic changes without acute intracranial process. Patient is admitted for increased confusion, CVA workup with neurology on consult. Ammonia level was negative. Urinalysis was negative for leukocyte esterase or nitrites. MRI of the brain and MRA of the head and neck showed chronic findings similar to that of 2015. Echocardiogram showed EF greater than 55% with no diastolic dysfunction. Lipid panel showed total cholesterol 211, LDL 132 with triglycerides of 155. A1c was pending at the time of discharge. Vascular duplex of the lower extremity showed no DVT. EEG was performed and pending at the time of this note. Patient was seen and examined. No acute events overnight. Patient reports no further confusion since yesterday. She denies any chest pain, shortness of breath or palpitations. No nausea or vomiting. No fever or chills. General: [non toxic], [no distress], [appears at stated age] Derm: [warm], [dry] Head: [atraumatic], [normocephalic], [symmetric] Eyes: [EOMI], [no lid lag], [anicteric sclera] Mouth: [no lip lesion], [mucus membranes moist] Cardiovascular: [S1S2 reg], [no murmur], [positive DP pulse bilateral], Lungs: [CTA bilateral], [no rhonchi, no rales] , [no accessory muscle use] Abdominal: [soft], [ nontender to palpation], [no guarding], [no appreciable organomegaly] Ext: [no gross muscle atrophy], [minimal swelling in the right lower extremity], [medial deviation of the feet bilaterally] Neuro: [ CN II-XI grossly intact except left-sided facial droop and inability to raise forehead on the left side], [strength is 4 out of 5 in the right upper ex tremity and 5 out of 5 throughout with sensation intact to touch] Psych: [Alert], [oriented], [appropriate affect] Acute encephalopathy with history of cerebellar tumor, acoustic neuroma post surgery complicated with meningitis and multiple CVA Dyslipidemia Seizure disorder Right lower extremity swelling and pain CT brain is negative for acute changes. Ammonia is negative. Urinalysis negative for leukocyte esterase or nitrites. MRI brain and MRA head and neck shows chronic findings to that of 2015. Echocardiogram shows EF greater than 55% with no diastolic dysfunction. Lipid panel shows total cluster 211, LDL 132, triglyceride 155. PT cleared. Plans: Follow A1c. Advance to neurochecks. Telemetry monitoring. Swallow screen. Follow speech therapy and OT. Follow EEG Lipid panel as above. Plans: Start Lipitor 40 mg by mouth at bedtime. Current complaint does not seem to be related to seizures. Plans: Resume Keppra. Resume Lacosamide. Seizure precautions. Follow EEG. Plans: Follow duplex right lower extremity. Pain control with baclofen, [place], Dilaudid as needed. [Patient admitted for possible CVA. Workup negative. EEG pending. Neurology evaluation pending. DC today with neurology clearance.] Pertinent Studies: Chest x-ray, brain CT, venous duplex, echocardiogram, brain MRI, MRA head and neck Patient Condition at Discharge: Stable Plan - Discharge Summary Discharge Rx Participant: No New Discharge Prescriptions: New Aspirin 81 mg PO DAILY #30 chewable Atorvastatin Calcium [Lipitor] 40 mg PO HS #30 tablet Continue Baclofen 10 mg PO TID DULoxetine HCL [Cymbalta] 60 mg PO QAM Docusate [Colace] 100 mg PO W/LUNCH levETIRAcetam [Keppra] 1,500 mg PO BID LORazepam [Ativan] 1 mg PO HS Lacosamide [Vimpat] 300 mg PO BID Ferrous Sulfate [Iron (65 MG Elemental)] 325 mg PO W/LUNCH Discharge Medication List Baclofen 10 mg PO TID 02/10/14 [History] DULoxetine HCL [Cymbalta] 60 mg PO QAM 06/03/18 [History] Docusate [Colace] 100 mg PO W/LUNCH 02/02/19 [History] Ferrous Sulfate [Iron (65 MG Elemental)] 325 mg PO W/LUNCH 02/02/19 [History] LORazepam [Ativan] 1 mg PO HS 02/02/19 [History] Lacosamide [Vimpat] 300 mg PO BID 02/02/19 [History] levETIRAcetam [Keppra] 1,500 mg PO BID 02/02/19 [History] Aspirin 81 mg PO DAILY #30 chewable 02/03/19 [Rx] Atorvastatin Calcium [Lipitor] 40 mg PO HS #30 tablet 02/03/19 [Rx] Follow up Appointment(s)/Referral(s): Unruly Radford MD [Primary Care Provider] - 1-2 days Marcial Mayers DO [Family Provider] - 1 Week Activity/Diet/Wound Care/Special Instructions: Diet: Low-fat Follow-up PCP within 3 days of discharge. Follow-up neurology within 1 week of discharge. Medications as advised. Discharge Disposition: HOME SELF-CARE
--- NOTE | 2019-02-03 14:22 | EEG ---
ELECTROENCEPHALOGRAM REPORT DATE OF SERVICE: 02/03/2019 PREAMBLE: This is a 48-year-old female with altered mental status. This study is performed to evaluate for any epileptiform activity. CURRENT MEDICATIONS: Keppra, Vimpat, Dilaudid, Cymbalta, baclofen. EEG FINDINGS: Routine 21 channel awake digital EEG recording was accomplished utilizing the 10/20 international system with bipolar and referential montages. The background consists of well-developed, but poorly regulated, 8 to 9 Hz activity intermixed with some dysrhythmic theta and some delta activity in bihemispheric region, relatively better seen in the right hemispheric region. There is additional focal slowing involving the left frontal and temporal region. The study was not technically the very best, as there was some myogenic and muscle activity. However, there was superimposed focal slowing and some sharp and slow waves seen in the left temporal region. Different stages of sleep were not clearly seen. Photic driving response was not seen. IMPRESSION: This is an abnormal EEG due to: 1. Background slowing and disorganization, suggestive of generalized cerebral dysfunction, as can be seen with encephalopathy due to vascular, metabolic, or degenerative process. 2. Superimposed left frontal temporal slowing with focal epileptiform activity over the left temporal region. This is suggestive of focal cortical neuronal dysfunction with underlying cortical irritability and tendency for seizures. No electrographic seizure was recorded. MMODL / IJN: [id number] /
--- NOTE | 2019-02-03 15:46 | P.CNNES ---
History of Present Illness Consult date: 02/03/19 Requesting physician: Ethan Lindsey Reason for Consult: TIA/CVA History of Present Illness: Patient is a 48-year-old female who has history of previous strokes, seizure disorder, has residual some dysphasia, mild right hemiparesis, was brought to the hospital after patient was noted to be confused by her . Yesterday morning she called her that she did not remember if she has taken her medication or not. Patient's asked her to check the pillbox and apparently she did have taken the morning medication. About half an lead later, she called back again, upset, not knowing where she was at, although she was standing in the garage, trying to let her dog out. Her went in and fou nd her confused, "out of it", in the bed sleeping. He notices that she could not gather her words. She appeared more confused than baseline. She couldn't express what she was feeling. Her got concerned if she was having another stroke therefore brought her to the hospital. No obvious seizure activity was noticed. Patient does take Keppra 1500 mg twice a day and Vimpat 300 mg twice a day. She did not miss her medications. Her last Keppra level was 28.5 (3-60), and Vimpat level 7.8 on 10/21/2018. At present patient has improved significantly, but not 100% back to baseline. She still slightly slow and not speaking as much. Patient had history of acoustic neuroma removed 10 years ago. Postoperatively, 3 days later she developed wound infection, cerebritis, meningitis, ended up with having 5 strokes. Patient started having seizure disorder for the last 3 years. At one point her seizures were very severe, difficult to control, requiring use of Dilantin, besides Keppra and Vimpat. Dilantin has been slowly weaned off. Patient states that after her initial cerebritis/meningitis, she had 5 strokes. Patient's states that after her last MRI, her neurologist Dr. Mayers mentioned that she had "8 strokes". Patient underwent MRI of the brain with and without contrast today, which revealed no evidence of a recent infarct. Multifocal areas of old infarct and encephalomalacia are redemonstrated without significant change from 2015 MRI. MRA of the neck shows normal three-vessel region from the aortic arch. No significant focal stenosis and visualized portions of the common or internal carotid arteries bilaterally including at the level of carotid bulbs. S uboptimal evaluation of distal ICAs due to tortuous course and non-performance of dedicated MRA head imaging. Codominant vertebrobasilar system patent to basilar junction. Patient had a 2-D echo, which revealed EF greater than 55%. Left-ventricular size is normal. Left atrial size normal. Aortic root size is normal. EKG shows normal sinus rhythm. Review of Systems As above. Patient denies any headache any new problem with the vision. All other review of systems unremarkable. 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 cva x5 2007. right foot tendon surgery 2011. right knee surgery 1998 and left elbow surgery 2000. History of Any Multi-Drug Resistant Organisms: None Reported Past Surgical History: Section, Orthopedic Surgery Additional Past Surgical History / Comment(s): brain surgery/ arm/ knee/feet Past Anesthesia/Blood Transfusion Reactions: No Reported Reaction Past Psychological History: No Psychological Hx Reported Smoking Status: Never smoker Past Alcohol Use History: Rare Past Drug Use History: None Reported - Past Family History Mother Family Medical History: No Reported History Father Family Medical History: Cancer Additional Family Medical History / Comment(s): prostate Brother(s) Family Medical History: Cancer Additional Family Medical History / Comment(s): leukemia Medications and Allergies Home Medications Medication Instructions Recorded Confirmed Type Baclofen 10 mg PO TID 02/10/14 02/02/19 History DULoxetine HCL [Cymbalta] 60 mg PO QAM 06/03/18 02/02/19 History Docusate [Colace] 100 mg PO W/LUNCH 02/02/19 02/02/19 History Ferrous Sulfate [Iron (65 MG 325 mg PO W/LUNCH 02/02/19 02/02/19 History Elemental)] LORazepam [Ativan] 1 mg PO HS 02/02/19 02/02/19 History Lacosamide [Vimpat] 300 mg PO BID 02/02/19 02/02/19 History levETIRAcetam [Keppra] 1,500 mg PO BID 02/02/19 02/02/19 History Aspirin 81 mg PO DAILY #30 chewable 02/03/19 Rx Atorvastatin Calcium [Lipitor] 40 mg PO HS #30 tablet 02/03/19 Rx Allergies Allergy/AdvReac Type Severity Reaction Status Date / Time latex Allergy Rash/Hives Verified 02/02/19 16:42 petrolatum, yellow Allergy Rash/Hives Verified 02/02/19 16:42 Physical Examination - Vital Signs Vital Signs: Vital Signs Temp Pulse Pulse Resp BP BP Pulse Ox 02/03/19 12:00 98 F 76 16 105/64 94 L 02/03/19 08:30 97.6 F 76 16 109/55 98 02/03/19 03:20 98.2 F 88 16 122/59 100 02/02/19 23:45 98.3 F 70 16 109/55 99 02/02/19 19:54 98 F 74 16 119/58 97 02/02/19 19:17 72 16 103/68 99 Intake and Output 02/03/19 02/03/19 02/03/19 06:59 14:59 22:59 Intake Total 1200 Balance 1200 Intake: Intake, IV Titration 600 Amount Sodium Chloride 0.9% 1, 600 000 ml @ 75 mls/hr IV . [id number] [facility] Rx#:[id number] Oral 600 Other: Weight 70.3 kg On examination patient is a middle aged female, in no acute distress. Patient is alert and awake. Her speech is mildly dysarthric. She has slightly limited vocabulary, word finding problem. Patient knows her name, has slight difficulty with remembering her date of stating it was 1970 although it is actually 1970. Patient could not tell current month or year. Her states that she is "terrible with numbers". Patient knows that she is in [facility] in [place] and the name of the president. On cranial nerve examination pupils are round and reacting, visual colin revealed some neglect peripherally in certain parts, difficult to assess with very inconsistent results. Extraocular muscles are intact. She has left facial weakness, peripheral type. Tongue protrudes the midline. On muscle strength testing patient has mild right pronation. Her right arm is slightly spastic. The strength appears normal in the arms. Her strength is normal at the hips and knees, but patient has stiff and weak right ankle. Left ankle is normal. Refl exes are brisk, right more than left and has bilateral Babinski. Sensory touch is equal with no neglect. Patient has some dysmetria for [id number] on the right. Tone is increased on the right side. Bulk of muscles normal. Results Her liver functions are normal. Total cholesterol is 211, LDL 132, HDL 48 and triglycerides 155. Hemoglobin A1c 5.3. - Laboratory Findings CBC and BMP: 02/02/19 15:15 02/02/19 15:15 Abnormal Lab Findings: Abnormal Labs 02/02/19 02/02/19 02/03/19 15:15 15:45 06:34 Chloride 108 H Alkaline Phosphatase 36 L Triglycerides 155 H Cholesterol 211 H LDL Cholesterol, Calc 132 H Urine Blood Moderate H Assessment and Plan Assessment: * 48-year-old female with history of previous strokes admitted with episode of altered mental status with transient encephalopathy. Differential is between complex partial seizure, medications related or less likely TIA. No evidence of CVA noted on the MRI. * Localization-related epilepsy * History of resection of left acoustic neuroma, followed by cerebritis and meningitis 10 years ago, with subsequent chronic multifocal encephalomalacia. * Cognitive impairment, due to above. Plan: * Patient possibly had a complex partial seizure. Her EEG was abnormal. I discussed with patient's to perhaps decrease dose of Vimpat to 200 mg twice a day but add Lamictal to the regimen. Patient's wanted to discuss this option with her neurologist Dr. Mayers before considering this change. She is clear for discharge. Patient should follow-up with her neurologist in 1-2 weeks.
[2019-02-03 16:20] VITALS: BP 104/69; PULSE 77
[2019-02-03] MEDS ORDERED: ATORVASTATIN 40 MG TAB PO SCH (17:45)
== END 2019-02-03 18:10 | disposition home or self-care (01) ==
LOC: EC 13:09 → 3SCARD 16:32
PROVIDERS: ADMIT Family Medicine; ATTEND Family Medicine
DX: G93.40 Encephalopathy, unspecified (principal); E78.5 Hyperlipidemia, unspecified; M79.89 Other specified soft tissue disorders; M79.604 Pain in right leg; R94.01 Abnormal electroencephalogram [EEG]; G40.909 Epilepsy, unspecified, not intractable, without status epilepticus; R51 Headache; G89.29 Other chronic pain; I69.391 Dysphagia following cerebral infarction; I69.351 Hemiplegia and hemiparesis following cerebral infarction affecting right dominant side; R13.10 Dysphagia, unspecified; G31.9 Degenerative disease of nervous system, unspecified; I67.82 Cerebral ischemia; I08.1 Rheumatic disorders of both mitral and tricuspid valves; Z23 Encounter for immunization; Z98.890 Other specified postprocedural states; Z79.899 Other long term (current) drug therapy; Z91.040 Latex allergy status; Z91.048 Other nonmedicinal substance allergy status; Z85.841 Personal history of malignant neoplasm of brain; Z92.3 Personal history of irradiation; Z86.61 Personal history of infections of the central nervous system; Z80.42 Family history of malignant neoplasm of prostate; Z80.6 Family history of leukemia
CPT/HCPCS: 96376 ×2; 96374; 99285; 36415; 95819; 93005; 93306; 97161; 92523; 80061; 80053; 80177; 82140; 85025; 85610; 85730; 81001; 83036; 71046; 93971; 70450; 70549; 70553; 90686; G0378 ×2; G0008; J1644 ×2; J1170 ×3; A9585

== ENCOUNTER 2019-06-17 21:38 | Emergency (ER) | payer BC ==
[2019-06-17 21:53] VITALS: BP 104/66; PULSE 79; RESP 18; TEMP 97.9
[2019-06-18 05:03] LABS: Partial Thromboplastin Time 24.6 sec (22.0-30.0); Prothrombin Time 10.1 sec (9.0-12.0)
[2019-06-18 05:05] LABS: Basophils % (A) 1 %; Eosinophils # (A) 0.2 k/uL (0-0.7); Eosinophils % (A) 2 %; HGB 12.5 gm/dL (11.4-16.0); Lymphocytes # (A) 1.7 k/uL (1.0-4.8); Lymphocytes % (A) 26 %; MCV 96.9 fL (80.0-100.0); Mean Platelet Volume 8.6; Monocytes # (A) 0.3 k/uL (0-1.0); Monocytes % (A) 5 %; Neutrophils # (A) 4.1 k/uL (1.3-7.7); Neutrophils % (A) 65 %; Platelet Count 220 k/uL (150-450); RBC 4.03 m/uL (3.80-5.40); RDW 12.2 % (11.5-15.5); WBC 6.4 k/uL (3.8-10.6)
[2019-06-18 05:52] LABS: ALT 14 U/L (4-34); AST 16 U/L (14-36); African American GFR (CKD) >90 (>60 ml/min/1.73 sqM); Albumin 3.9 g/dL (3.5-5.0); Alkaline Phosphatase 38 U/L (38-126); Anion Gap 3 mmol/L; Blood Urea Nitrogen 13 mg/dL (7-17); Calcium 9.1 mg/dL (8.4-10.2); Carbon Dioxide 30 mmol/L (22-30); Chloride 104 mmol/L (98-107); Creatine Kinase 36 U/L (30-135); Creatine Kinase MB 0.4 ng/mL (0.0-2.4); Glucose 101 mg/dL (74-99); Non-African American GFR(CKD) >90 (>60 ml/min/1.73 sqM); Potassium 4.1 mmol/L (3.5-5.1); Sodium 137 mmol/L (137-145); Total Bilirubin <0.1 mg/dL (0.2-1.3); Total Protein 6.4 g/dL (6.3-8.2); Troponin I <0.012 ng/mL (0.000-0.034)
--- NOTE | 2019-06-18 06:00 | CT ---
EXAM: CT Head Without Intravenous Contrast CLINICAL HISTORY: neuro deficits TECHNIQUE: Axial computed tomography images of the head/brain without intravenous contrast. CTDI is 49 mGy and DLP is 1164 mGy-cm. This CT exam was performed using one or more of the following dose reduction techniques: automated exposure control, adjustment of the mA and/or kV according to patient size, and/or use of iterative reconstruction technique. COMPARISON: Head CT 02/10/2014 brain MRI 10/27/2014 FINDINGS: Brain: Multifocal areas of encephalomalacia in the cerebrum greater on the left. Encephalomalacia within the cerebellum. Cerebral and cerebellar volume loss. There is some new small amount of hyperdense hemorrhage in the right cerebellum. This appears to be intraparenchymal. Ventricles: There is ex vacuo dilatation of the ventricles. Bones/joints: Focus of calcification in the right cerebellum. Occipital craniotomy along the low midline and left occipital temporal craniectomy changes. There is some debris in the left external auditory canal, presumably cerumen. There is some stable opacification in the left mastoid air cells. Partial resection of the left mastoid air cells. No acute fracture. Soft tissues: Unremarkable. Sinuses: Unremarkable as visualized. No acute sinusitis. Mastoid air cells: Unremarkable as visualized. No mastoid effusion. IMPRESSION: Small amount of intraparenchymal hemorrhage in the right cerebellum. <MYCVCSECTION> Communications: 06/18/19 01:40 Call Doctor Regarding Intracranial Hemorrhage, called Dr. Almaguer on 06/17 01:40 (-04:00)
--- NOTE | 2019-06-18 06:01 | XR ---
EXAM: XR Chest, 2 Views CLINICAL HISTORY: AMS TECHNIQUE: Frontal and lateral views of the chest. COMPARISON: No relevant prior studies available. FINDINGS: Lungs: Unremarkable. No consolidation. Pleural space: Unremarkable. No pneumothorax. Heart: Unremarkable. No cardiomegaly. Mediastinum: Unremarkable. Bones/joints: Unremarkable. IMPRESSION: No acute cardiopulmonary pathology.
== END 2019-06-18 02:23 | disposition other institution (70) ==
LOC: EC 21:38
DX: I61.4 Nontraumatic intracerebral hemorrhage in cerebellum (principal); Z86.73 Personal history of transient ischemic attack (TIA), and cerebral infarction without residual deficits; Z86.018 Personal history of other benign neoplasm
CPT/HCPCS: 36415; 70450; 71046; 80053; 82550; 82553; 84484; 85025; 85610; 85730; 93005; 99285